=== PATIENT | male | born 1940 | race Caucasian/White ===

== ENCOUNTER 2020-12-22 10:33 | Emergency (ER) | payer OTHER ==
[2020-12-22 10:39] VITALS: BP 133/56; PULSE 90; TEMP 100; BMI 71.6
[2020-12-22 11:23] LABS: EPITHELIAL CELLS RARE /hpf
[2020-12-22 11:35] LABS: HEMATOCRIT 40.5 % (35.4-49); HEMOGLOBIN 13.9 GM/dl (11.7-16.9); MCH 32.7 pg (25.7-33.7); MCHC 34.3 g/dl (32.0-35.9); MEAN CELL VOLUME 95.2 fl (80-96); MEAN PLT VOLUME 8.3 fl (7.5-11.1); PLATELET COUNT 149 10^3/uL (134-434); RBC 4.25 M/mm3 (4.00-5.60); RDW 12.3 % (11.9-15.9); WHITE BLOOD COUNT 10.6 K/mm3 (4.0-10.8)
[2020-12-22 11:43] LABS: ALBUMIN 3.4 g/dl (3.4-5.0); CALCIUM 8.2 mg/dl (8.5-10); CREATININE 1.6 mg/dl (0.55-1.3); TOT PROT 6.5 g/dl (6.4-8.2)
[2020-12-22 11:46] LABS: BILIRUBIN,TOTAL 1.2 mg/dl (0.2-1)
[2020-12-22] MEDS ORDERED: SODIUM CHLORIDE 1,000 ML IV STA (11:52)
[2020-12-22 12:41] LABS: PLATELET ESTIMATE ADEQUATE
[2020-12-22] MEDS ORDERED: CIPROFLOXACIN 400 MG/D5W 400 MG/200 ML IVPB IVPB ONE (13:06)
== END 2020-12-22 14:36 | disposition home or self-care (01) ==
LOC: FER 10:33
PROC: 3E03329 Introduction of Other Anti-infective into Peripheral Vein, Percutaneous Approach (ICD-10-PCS; principal; 2020-12-22)
PROC: 3E0337Z Introduction of Electrolytic and Water Balance Substance into Peripheral Vein, Percutaneous Approach (ICD-10-PCS; 2020-12-22)
DX: N10 Acute pyelonephritis (principal)
CPT/HCPCS: 36415; 71045-TC-FY; 76775-TC; 80053; 81003; 81015; 85025; 87040; 87086; 87186; 99284-25; C9803; U0003; U0005

== ENCOUNTER 2024-11-20 15:01 | Emergency (ER) | payer OTHER ==
[2024-11-20 15:12] VITALS: BP 138/61; PULSE 66; RESP 16; TEMP 97.9; BMI 28.1
== END 2024-11-20 15:21 | disposition home or self-care (01) ==
LOC: FER 15:01
DX: K08.89 Other specified disorders of teeth and supporting structures (principal)
CPT/HCPCS: 99283-25